=== PATIENT | male | born 1965 | race Caucasian/White ===

== ENCOUNTER 2022-04-02 16:37 | Emergency (ER) | payer OTHER ==
[~2022-04-02] VITALS: Ht 172.7 cm; Wt 70.3 kg
== END 2022-04-02 20:25 | disposition home or self-care (01) ==
LOC: ER 16:37
DX: M54.9 Dorsalgia, unspecified (principal)

== ENCOUNTER → 2024-10-20 | Emergency (ER) | payer OTHER ==
[~2024-10-20] VITALS: Ht 170.2 cm; Wt 117.9 kg
[~2024-10-20] MED LIST: LOSARTAN POTASS50 MG PO; ROSUVASTATIN CAL5 MG PO; SYNJARDY XR 121 EACH PO
== END | disposition home or self-care (01) ==
LOC: ER 10:37
DX: J40 Bronchitis, not specified as acute or chronic (principal); J00 Acute nasopharyngitis [common cold]; E11.9 Type 2 diabetes mellitus without complications; Z79.84 Long term (current) use of oral hypoglycemic drugs; I10 Essential (primary) hypertension